=== PATIENT | male | born 1950 | race Caucasian/White ===

== ENCOUNTER 2018-09-27 09:33 | Inpatient (IN) | payer MEDICARE, OTHER ==
[2018-09-27] MEDS: LACTATED RINGER'S 1,000 ML IV* (06:00)
[~2018-09-27 09:33] MED LIST: CEFAZOLIN 1 GM INJ; CEFAZOLIN 2 GM/50 ML (PMX) 50 ML IVPB; DEXAMETHASONE 4 MG/ML 1 ML INJ; FENTAnyl 50 MCG/ML VIAL; GLYCOPYRROLATE 0.4 MG INJ; LIDOCAINE 2% (SDV) 5 ML INJ; MIDAZOLAM 1 MG/ML 2 ML INJ; NEOSTIGMINE 3 MG/3 ML SYRINGE; ONDANSETRON 4 MG INJ; PROPOFOL 20 ML; ROCURONIUM 50 MG INJ; SUCCINYLCHOLINE CHLORIDE 100 MG/5 ML SYG IV
[2018-09-27] MEDS ORDERED: CA CHLORIDE 10% 10 ML SYRINGE (11:45)
[2018-09-27] MEDS ORDERED: POLYMYXIN/BACITRACIN 1L IRRIG (11:46)
[2018-09-27] MEDS ORDERED: HEPARIN 1000 UNITS/ML 10 ML INJ ×2 (11:46→12:02)
[2018-09-27] MEDS: BUPIVACAINE 0.25%/EPI (SDV) 10 ML INJ (12:56)
[2018-09-27] MEDS: CEFAZOLIN 1 GM INJ (12:56)
[2018-09-27] MEDS: THROMBIN 5000 UNIT VIAL (12:56)
[2018-09-27] MEDS: SURGIFOAM POWDER 1 GM KIT (12:56)
[2018-09-27] MEDS ORDERED: FENTAnyl 50 MCG/ML VIAL (14:46)
[2018-09-27] MEDS ORDERED: SURGIFOAM POWDER 1 GM KIT (15:07)
[2018-09-27] MEDS: FENTAnyl 50 MCG/ML VIAL (15:54)
[2018-09-27] MEDS: BUPIVACAINE 0.25% (MPF) 30 ML INJ (15:54)
[2018-09-27] MEDS ORDERED: AL HYDROX/MG HYDROX/SIMETH 30 ML CUP PO (16:30)
[2018-09-27] MEDS ORDERED: ZOLPIDEM 5 MG TAB PO (16:30)
[2018-09-27] MEDS ORDERED: ACETAMINOPHEN 325 MG TAB PO (16:30)
[2018-09-27] MEDS ORDERED: DIPHENHYDRAMINE 50 MG INJ IV (16:30)
[2018-09-27] MEDS ORDERED: HYDROCODONE/APAP (10/325) TAB PO (16:30)
[2018-09-27] MEDS ORDERED: BISACODYL 10 MG SUPP PR (16:30)
[2018-09-27] MEDS ORDERED: ONDANSETRON 4 MG INJ IV (16:30)
[2018-09-27] MEDS ORDERED: CYCLOBENZAPRINE 10 MG TAB PO (16:30)
[2018-09-27] MEDS ORDERED: CEPASTAT LOZENGE MT (16:30)
[2018-09-27] MEDS ORDERED: NALOXONE (0.4 MG/ML) INJ IV (16:30)
[2018-09-27] MEDS ORDERED: HYDROmorphONE 0.5 MG/0.5 ML SYG IV (16:30)
[2018-09-27] MEDS ORDERED: HYDROmorphONE 0.2 MG/ML PCA (16:39)
[2018-09-27] MEDS: HYDROmorphONE 0.2 MG/ML PCA IV (16:46)
[2018-09-27] MEDS: CEFAZOLIN 1 GM/50 ML (PMX) 50 ML IVPB (16:54)
[2018-09-27] MEDS: D5W-0.45 NACL + KCL 20 MEQ 1,000 ML IV (18:14)
[2018-09-27] MEDS: DOCUSATE SODIUM 100 MG CAP PO (20:26)
[2018-09-28] MEDS: D5W-0.45 NACL + KCL 20 MEQ 1,000 ML IV ×2 (01:54→04:25)
[2018-09-28 05:12] LABS: ADD MAN DIFF? NO; BASOPHILS % 0.1 % (0.0-2.0); HEMATOCRIT 35.9 % (42.0-52.0); HEMOGLOBIN 12.2 g/dl (14.0-18.0); LYMPHOCYTES # 0.7 10^3/ul (0.8-2.9); LYMPHOCYTES % 6.9 % (15.0-51.0); MEAN CORPUSCULAR HEMOGLOBIN 33.2 pg (29.0-33.0); MEAN CORPUSCULAR VOLUME 97.8 fl (82.0-101.0); MEAN PLATELET VOLUME 9.5 fl (7.4-10.4); MONOCYTE # 0.5 10^3/ul (0.3-0.9); MONOCYTES % 5.7 % (0.0-11.0); NEUTROPHIL # 8.1 10^3/ul (1.6-7.5); NEUTROPHILS % 86.9 % (39.0-77.0); PLATELET COUNT 202 10^3/UL (140-415); RED BLOOD COUNT 3.67 10^6/ul (4.70-6.10); RED CELL DISTRIBUTION WIDTH 12.3 % (11.5-14.5)
[2018-09-28 05:12] LABS: WHITE BLOOD COUNT 9.4 10^3/ul (4.8-10.8)
[2018-09-28] MEDS: PANTOPRAZOLE 40 MG INJ IV (05:38)
[2018-09-28 05:46] LABS: ANION GAP 7 (5-13); BLOOD UREA NITROGEN 15 mg/dl (7-20); CALCIUM 7.8 mg/dl (8.4-10.2); CARBON DIOXIDE 24 mmol/L (21-31); CHLORIDE 107 mmol/L (97-110); CREATININE 1.05 mg/dl (0.61-1.24); Estimated GFR > 60 mL/min (>60); GLUCOSE 150 mg/dl (70-220); MAGNESIUM 1.9 mg/dl (1.7-2.5); POTASSIUM 5.2 mmol/L (3.5-5.1); SODIUM 138 mmol/L (135-144)
[2018-09-28] MEDS: DOCUSATE SODIUM 100 MG CAP PO ×2 (08:37→20:19)
[2018-09-28] MEDS: SOD CHLORIDE 0.9% 1,000 ML IV ×2 (08:38→20:25)
[2018-09-28] MEDS: AMLODIPINE 10 MG TAB PO (11:02)
[2018-09-28] MEDS ORDERED: VITAMIN A & D 5 GM OINT PACKET TOP (14:38)
[2018-09-28] MEDS: HYDROCODONE/APAP (10/325) TAB PO ×2 (15:27→19:36)
[2018-09-29] MEDS: HYDROCODONE/APAP (10/325) TAB PO ×3 (02:35→11:19)
[2018-09-29 05:01] LABS: ADD MAN DIFF? NO
[2018-09-29 05:08] LABS: BASOPHILS % 0.1 % (0.0-2.0); EOSINOPHILS % 0.4 % (0.0-7.0); HEMATOCRIT 33.9 % (42.0-52.0); HEMOGLOBIN 11.4 g/dl (14.0-18.0); MEAN CORPUSCULAR HGB CONC 33.6 g/dl (32.0-37.0); MEAN CORPUSCULAR VOLUME 98.3 fl (82.0-101.0); MEAN PLATELET VOLUME 9.7 fl (7.4-10.4); MONOCYTE # 0.9 10^3/ul (0.3-0.9); MONOCYTES % 11.1 % (0.0-11.0); NEUTROPHILS % 75.3 % (39.0-77.0); PLATELET COUNT 181 10^3/UL (140-415); RED BLOOD COUNT 3.45 10^6/ul (4.70-6.10); RED CELL DISTRIBUTION WIDTH 12.7 % (11.5-14.5)
[2018-09-29 05:29] LABS: PHOSPHORUS 3.6 mg/dl (2.5-4.9)
[2018-09-29 05:32] LABS: ANION GAP 8 (5-13); BLOOD UREA NITROGEN 19 mg/dl (7-20); CALCIUM 8.1 mg/dl (8.4-10.2); CARBON DIOXIDE 25 mmol/L (21-31); CHLORIDE 108 mmol/L (97-110); CREATININE 1.11 mg/dl (0.61-1.24); Estimated GFR > 60 mL/min (>60); GLUCOSE 118 mg/dl (70-220); MAGNESIUM 2.1 mg/dl (1.7-2.5); POTASSIUM 4.5 mmol/L (3.5-5.1); SODIUM 141 mmol/L (135-144)
[2018-09-29] MEDS: PANTOPRAZOLE 40 MG INJ IV (05:51)
[2018-09-29] MEDS: AMLODIPINE 10 MG TAB PO (09:21)
[2018-09-29] MEDS ORDERED: HYDROCODONE/APAP (10/325) TAB PO (09:30)
[2018-09-29] MEDS: DOCUSATE SODIUM 100 MG CAP PO (10:14)
== END 2018-09-29 13:40 | disposition home or self-care (01) | DRG 520 ==
LOC: REC 09:33 → MS1 17:25
PROC: 01NB0ZZ Release Lumbar Nerve, Open Approach (ICD-10-PCS; principal; 2018-09-27 12:00)
PROC: 00BT0ZX Excision of Spinal Meninges, Open Approach, Diagnostic (ICD-10-PCS; 2018-09-27 12:00)
PROC: 01NR0ZZ Release Sacral Nerve, Open Approach (ICD-10-PCS; 2018-09-27 12:00)
DX: M48.062 Spinal stenosis, lumbar region with neurogenic claudication (principal); M48.07 Spinal stenosis, lumbosacral region; M54.16 Radiculopathy, lumbar region; M54.17 Radiculopathy, lumbosacral region; G96.19 Other disorders of meninges, not elsewhere classified; I10 Essential (primary) hypertension; E87.5 Hyperkalemia
CPT/HCPCS: 72020; 80048; 83735; 84100; 85025; 86999; 88304; 88311; 97116; 97161; 97530